=== PATIENT | female | born 1960 | race Two or more races ===

== ENCOUNTER 2017-08-28 14:45 | Emergency (ER) | payer OTHER ==
[~2017-08-28] VITALS: Ht 170.2 cm; Wt 74.8 kg
[~2017-08-28 14:45] MED LIST: CATAFLAM; LEVAQUIN750 MG PO; NEURONTIN800 MG; PEPCID20 MG PO; PNEU16DI2; TOPROL XL25 M1 PO; VENTOLIN HFA18 GM IH; WELLBUTRIN XL300 MG; XOPENEX0.63 MG/3 IH; ZYNCOF 20-400120 ML PO; medrol dose pack PO
[2017-08-28] MEDS ORDERED: SYNTHROID88 MCG PO (15:02)
[2017-08-28] MEDS ORDERED: LIOTHYRONINE SO5 MCG PO (15:02)
== END 2017-08-28 18:11 | disposition home or self-care (01) ==
LOC: ER 14:45
DX: B34.9 Viral infection, unspecified (principal); J11.1 Influenza due to unidentified influenza virus with other respiratory manifestations

== ENCOUNTER → 2018-06-03 | Emergency (ER) | payer OTHER ==
[~2018-06-03] VITALS: Ht 170.2 cm; Wt 74.8 kg
[~2018-06-03] MED LIST changes: +LIOTHYRONINE SO5 MCG PO; +SYNTHROID88 MCG PO; +TOPROL XL25 M1
== END | disposition home or self-care (01) ==
LOC: ER 19:20
DX: S50.12XA Contusion of left forearm, initial encounter (principal); W22.8XXA Striking against or struck by other objects, initial encounter; Y93.89 Activity, other specified; Y92.89 Other specified places as the place of occurrence of the external cause; Y99.8 Other external cause status

== ENCOUNTER 2020-04-17 14:57 | Emergency (ER) | payer OTHER ==
[~2020-04-17] VITALS: Ht 170.2 cm; Wt 80.7 kg
== END 2020-04-17 19:23 | disposition home or self-care (01) ==
LOC: ER 14:57
DX: J06.9 Acute upper respiratory infection, unspecified (principal); Z03.818 Encounter for observation for suspected exposure to other biological agents ruled out

== ENCOUNTER 2024-09-14 12:02 | Emergency (ER) | payer OTHER ==
[~2024-09-14] VITALS: Ht 170.2 cm; Wt 77.1 kg
[~2024-09-14 12:02] MED LIST changes: +CYCLOBENZAPRINE10 MG PO; +DICLOFENAC POTA50 MG PO
[2024-09-14] MEDS ORDERED: SUCRALFATE 1 G TABLET PO ONE (13:00)
[2024-09-14] MEDS ORDERED: BARIUM SULFATE 450 ML ORAL.SUSP PO ONE (13:21)
[2024-09-14 13:47] LABS: BASO % 0.3 % (0.1-1.2); EOS # 0.08 (0.04-0.54); EOS % 0.6 % (0.7-7.0); HEMATOCRIT 42.6 % (34.1-44.9); HEMOGLOBIN 13.9 g/dL (11.2-15.7); LYMPH # 1.26 (1.18-3.74); LYMPH % 9.7 % (19.3-53.1); MONO # 0.59 (0.24-0.82); MONO % 4.5 % (4.7-12.5); NEUT # 11.01 (1.56-6.13); NEUT % 84.6 % (34.0-71.1); PLATELET COUNT 309 K/uL (163-369); RED BLOOD COUNT 4.79 M/uL (3.93-5.22); RED CELL DISTRIBUTION WIDTH 13.9 % (11.6-14.4)
[2024-09-14 14:05] LABS: CALCIUM 8.6 mg/dL (8.5-10.1); CREATININE SERUM 0.83 mg/dL (0.55-1.02); GFR 69.21; POTASSIUM 4.52 mEq/L (3.5-5.1)
[2024-09-14 14:26] LABS: URINE APPEARANCE Clear; URINE BILIRRUBIN Negative (NEGATIVE); URINE BLOOD Negative; URINE COLOR Dark Yellow; URINE GLUCOSE Negative (NEGATIVE); URINE KETONE Trace (NEGATIVE); URINE LEUKOCYTE Negative; URINE NITRATE Negative; URINE PROTEIN 30 (NEGATIVE)
[2024-09-14 14:31] LABS: URINE BACTERIA 17.1 uL (0.0-1933); URINE EPITHELIAL CELLS 16.4 uL (0.0-38.8); URINE RBC 2.9 uL (0.0-20.8); URINE WBC 12.6 uL (0.0-23.2)
[2024-09-14 14:51] LABS: URINE CAST 0.58 uL (0.0-1.40)
[2024-09-14] MEDS ORDERED: CIPROFLOXACIN IN 5 % DEXTROSE 400 MG/200 ML PIGGYBAG IV ONE ×2 (17:00→17:01)
[2024-09-14] MEDS ORDERED: ONDANSETRON HCL 2 MG/ML VIAL ONE (17:29)
[2024-09-14] MEDS ORDERED: FAMOTIDINE/PF 20 MG/2 ML VIAL ONE (17:30)
[2024-09-14] MEDS ORDERED: FAMOtidine 10 MG/ML (4ML VIAL) IV ONE (17:30)
[2024-09-14] MEDS ORDERED: ONDANSETRON HCL 2 MG/ML VIAL IV ONE (17:30)
[2024-09-14] MEDS ORDERED: ZOFRAN8 MG PO (19:50)
[2024-09-14] MEDS ORDERED: PEPCID AC20 MG PO (19:50)
[2024-09-14] MEDS ORDERED: CIPRO500 MG PO (19:50)
== END 2024-09-14 20:00 | disposition home or self-care (01) ==
LOC: ER 12:05
PROVIDERS: Emergency Medicine
DX: R10.9 Unspecified abdominal pain (principal); Z88.0 Allergy status to penicillin; Z88.2 Allergy status to sulfonamides; I10 Essential (primary) hypertension; E03.8 Other specified hypothyroidism; K59.00 Constipation, unspecified
CPT/HCPCS: 36415; 74177; 96365; 99284; J0744; J2405; J3490; Q9965